=== PATIENT | female | born 2000 | race American Indian/Alaskan Native ===

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

== ENCOUNTER 2022-03-26 15:11 | Emergency (ER) | payer MEDICAID ==
[2022-03-26 15:26] VITALS: BP 112/73
[2022-03-26] MEDS ORDERED: IBUPROFEN 800 MG TAB PO ONE (15:44)
[2022-03-26] MEDS ORDERED: HYDROcodone/ACETAMINOPHEN 10-325MG TAB PO ONE (15:44)
[2022-03-26] MEDS ORDERED: LIDOCAINE (1%) 10 MG/1 ML VIAL 20 ML MDV INFILTRATI ONE (16:07)
--- NOTE | 2022-03-26 16:10 | Emergency Department Report ---
ED Laceration HPI - HPI Chief Complaint: Skin/Abscess/Foreign Body Stated Complaint: NAIL IN RT HEEL Occurred When: Today Location: Lower Extremity Severity: moderate Tetanus Status: Unknown Laceration Symptoms: Yes Pain ED Review of Systems ROS: Stated complaint: NAIL IN RT HEEL Other details as noted in HPI Constitutional: denies: chills, diaphoresis, fever Respiratory: denies: cough, shortness of breath Cardiovascular: denies: as per HPI, chest pain, palpitations Endocrine: denies: excessive sweating Gastrointestinal: denies: abdominal pain, nausea, vomiting Genitourinary: denies: urgency Musculoskeletal: arthralgia. denies: back pain, joint swelling Skin: denies: change in color Neurological: numbness. denies: headache, weakness, paresthesias, confusion Hematological/Lymphatic: denies: easy bleeding, easy bruising, swollen glands ED Past Medical Hx - Past Medical History Previous Medical History?: Yes Hx Hypertension: Yes (2019) Additional medical history: - Social History Smoking Status: Never Smoker - Medications Home Medications: Home Medications Medication Instructions Recorded Confirmed Last Taken Type Ibuprofen [Motrin 800 MG tab] 800 mg PO ONCE PRN #21 tablet 03/26/22 Unknown Rx Laceration Physical Exam - Exam General: Vital signs noted. No distress. Alert and acting appropriately. Laceration Location: Lower Extremity (Right heel) Laceration Exam: Yes Foreign Body, No Exposed Tendon, Vessel, or Nerve, No Tendon Injury, No Normal Distal CMS ED Course Vital Signs 03/26/22 15:23 Temperature 98.4 F Pulse Rate 94 H Respiratory 16 Rate Blood Pressure 112/73 [Left] O2 Sat by Pulse 98 Oximetry ED Medical Decision Making - Radiology Data Radiology results: report reviewed, image reviewed - Medical Decision Making 21-year-old female no significant history presents with foreign body in the right heel. Patient reports she accidentally stepped on a software technical lead prior to arrival. Describes pain tingling in her right heel, she denies use of blood thi nners, no bleeding disorder. There is no weakness of the extremity. No chest pain or shortness. Foreign body successfully removed, intact piece of no tag, no bleeding, x-ray I reviewed note evidence of fracture, patient is neurovascularly intact, with intact pulses sensation cap refill. No swelling no deformity. Discharge home with NSAIDs, wound care, return precautions including infection. Patient verbalized understanding of everything discussed Critical care attestation.: If time is entered above; I have spent that time in minutes in the direct care of this critically ill patient, excluding procedure time. ED Disposition Clinical Impression: Foreign body in foot, right, Puncture wound of skin from metal nail Disposition: 01 HOME / SELF CARE / HOMELESS Is pt being admited?: No Does the pt Need Aspirin: No Condition: Stable Instructions: Hand or Foot Foreign Body, Adult Prescriptions: Ibuprofen [Motrin 800 MG tab] 800 mg PO ONCE PRN #21 tablet PRN Reason: Pain , Severe (7-10) Referrals: PRIMARY CARE, [Primary Care Provider] - 3-5 Days ELOISA KELLEY MD [Staff Physician] - 3-5 Days Forms: Work/School Release Form(ED)
--- NOTE | 2022-03-26 16:19 | XRay Report ---
RIGHT FOOT 3 VIEW(S) INDICATION / CLINICAL INFORMATION: pain, punture injury COMPARISON: None available. FINDINGS: BONES / JOINT(S): No acute fracture or subluxation. No significant arthritis. SOFT TISSUES: There is a nail within the plantar aspect of the foot at the level of the calcaneus. Th is appears to be by 1.6 cm deep to the skin surface ADDITIONAL FINDINGS: None. Signer Name: Rolan Mack DO Signed: 03/26/2022 4:14 PM Workstation Name: [id number]
[2022-03-26] MEDS ORDERED: TETANUS,DIPHTHERIA TOXOID ADULT 0.5 ML INJ IM ONE (17:00)
== END 2022-03-26 17:23 | disposition home or self-care (01) ==
LOC: ED 15:11
DX: S91.341A Puncture wound with foreign body, right foot, initial encounter (principal); S90.851A Superficial foreign body, right foot, initial encounter; W22.8XXA Striking against or struck by other objects, initial encounter; Y93.89 Activity, other specified; Y92.89 Other specified places as the place of occurrence of the external cause; Y99.8 Other external cause status
CPT/HCPCS: 90714; 99284

== ENCOUNTER 2022-04-05 18:50 | Emergency (ER) | payer MEDICAID ==
[2022-04-05 19:56] VITALS: BP 105/69
== END 2022-04-06 02:49 | disposition left against medical advice (07) ==
LOC: ED 18:50
DX: R21 Rash and other nonspecific skin eruption (principal); Z53.21 Procedure and treatment not carried out due to patient leaving prior to being seen by health care provider